=== PATIENT | female | born 1940 | race Caucasian/White ===

== ENCOUNTER → 2016-06-08 | Outpatient (REF) | payer MEDICARE ==
[2016-06-08 11:54] LABS: ANION GAP 9 MEQ/L (8-16); BLOOD UREA NITROGEN 13 MG/DL (7-18); CALCIUM LEVEL 9.7 MG/DL (8.8-10.2); CARBON DIOXIDE LEVEL 30 MEQ/L (21-32); CHLORIDE LEVEL 105 MEQ/L (98-107); CREATININE FOR GFR 0.54 MG/DL (0.55-1.02); GLOMERULAR FILTRATION RATE > 60.0 (>39); GLUCOSE, FASTING 80 MG/DL (83-110); POTASSIUM SERUM 4.3 MEQ/L (3.5-5.1); SODIUM LEVEL 144 MEQ/L (136-145)
== END ==
LOC: M LABDRAWC 11:10
PROVIDERS: ATTEND Ophthalmology
DX: I10 Essential (primary) hypertension (principal)

== ENCOUNTER → 2016-06-13 | Outpatient (REF) | payer MEDICARE ==
[2016-06-13 18:49] LABS: ALBUMIN 3.7 GM/DL (3.2-5.2); ALBUMIN/GLOBULIN RATIO 0.77 (1.00-1.93); ALKALINE PHOSPHATASE 187 U/L (45-117); ALT/SGPT 18 U/L (12-78); ANION GAP 11 MEQ/L (8-16); AST/SGOT 18 U/L (15-37); BILIRUBIN,TOTAL 0.4 MG/DL (0.2-1.0); BLOOD UREA NITROGEN 10 MG/DL (7-18); CALCIUM LEVEL 10.1 MG/DL (8.8-10.2); CARBON DIOXIDE LEVEL 26 MEQ/L (21-32); CHLORIDE LEVEL 105 MEQ/L (98-107); CHOLESTEROL LEVEL 182 MG/DL (<200); GLOMERULAR FILTRATION RATE > 60.0 (>39); GLUCOSE, FASTING 95 MG/DL (83-110); POTASSIUM SERUM 3.6 MEQ/L (3.5-5.1); SODIUM LEVEL 142 MEQ/L (136-145); TOTAL PROTEIN 8.5 GM/DL (6.4-8.2); TRIGLYCERIDES LEVEL 114 MG/DL (<150)
[2016-06-14 14:55] LABS: GAMMA GLUTAMYLTRANSPEPTIDASE 138 U/L (5-55)
[2016-06-14 15:32] LABS: LABILE ALKPHOS 152 U/L; STABLE ALKPHOS 35 U/L
== END ==
LOC: M SFHCCLAY 09:31
PROVIDERS: ATTEND Nurse Practitioner
DX: Z01.818 Encounter for other preprocedural examination (principal); H26.9 Unspecified cataract; I10 Essential (primary) hypertension; F32.9 Major depressive disorder, single episode, unspecified; F40.01 Agoraphobia with panic disorder; M35.3 Polymyalgia rheumatica; Z79.52 Long term (current) use of systemic steroids; Z79.899 Other long term (current) drug therapy

== ENCOUNTER → 2016-06-13 | Outpatient (CLI) | payer MEDICARE ==
--- NOTE | 2016-06-13 10:32 | REP ---
Chest two views HISTORY: Preop clearance Comparison: None The lungs are hyperinflated. The lungs are clear. The heart is normal in size. The pulmonary vasculature is normal in appearance. There is a comminuted fracture of the the proximal right humerus. IMPRESSION: Comminuted fracture of the proximal right humerus
== END ==
LOC: M CLY 09:54
PROVIDERS: ATTEND Nurse Practitioner
DX: Z01.818 Encounter for other preprocedural examination (principal); H26.9 Unspecified cataract; S42.291A Other displaced fracture of upper end of right humerus, initial encounter for closed fracture; I10 Essential (primary) hypertension; F32.9 Major depressive disorder, single episode, unspecified; F40.01 Agoraphobia with panic disorder; M35.3 Polymyalgia rheumatica; Z79.52 Long term (current) use of systemic steroids; Z79.899 Other long term (current) drug therapy; Y92.9 Unspecified place or not applicable; Y93.9 Activity, unspecified; Y99.9 Unspecified external cause status; X58.XXXA Exposure to other specified factors, initial encounter

== ENCOUNTER → 2016-06-14 | Outpatient (REF) | payer MEDICARE | LOC: M SFHCCLAY 12:59 | PROVIDERS: ATTEND Nurse Practitioner | DX: R74.8 Abnormal levels of other serum enzymes (principal) ==

== ENCOUNTER 2022-05-30 16:12 | Inpatient (IN) | payer MEDICARE ==
[~2022-05-30] VITALS: Ht 154.9 cm; Wt 66.3 kg
[2022-05-30] MEDS ORDERED: LORazepam 2 MG/ML 1ML VIAL IM STA (16:36)
[2022-05-30 17:21] LABS: BASO # 0.1 10^3/uL (0.0-0.2); EOS # 0.3 10^3/uL (0.0-0.5); EOS % 4.2 % (0.0-3.0); HEMATOCRIT 47.3 % (36.0-47.0); HEMOGLOBIN 15.4 g/dl (12.0-15.5); LYMPH # 1.8 10^3/uL (1.5-5.0); LYMPH % 26.4 % (24.0-44.0); MEAN CORPUSCULAR HEMOGLOBIN 31.8 pg (27.0-33.0); MEAN CORPUSCULAR HGB CONC 32.6 g/dl (32.0-36.5); MEAN CORPUSCULAR VOLUME 97.5 fl (80.0-96.0); MONO # 0.6 10^3/uL (0.0-0.8); MONO % 8.3 % (2.0-8.0); NEUTROPHILS # 4.1 10^3/uL (1.5-8.5); NEUTROPHILS % 59.8 % (36.0-66.0); PLATELET COUNT, AUTOMATED 285 10^3/uL (150-450); RED BLOOD COUNT 4.85 10^6/uL (4.00-5.40); WHITE BLOOD COUNT 6.9 10^3/uL (4.0-10.0)
[2022-05-30] MEDS ORDERED: LORazepam 1 MG TAB PO STA (17:40)
[2022-05-30] MEDS ORDERED: LOSARTAN 50MG TABLET PO ONE (17:50)
[2022-05-30] MEDS ORDERED: atenoloL 25 MG TAB PO ONE (17:50)
[2022-05-30 17:51] LABS: ALBUMIN 4.2 G/DL (3.2-5.2); ALKALINE PHOSPHATASE 102 U/L (46-116); ALT/SGPT 15 U/L (7.0-40); AST/SGOT 29 U/L (<34); BILIRUBIN,DIRECT 0.2 MG/DL (<0.4); BILIRUBIN,TOTAL 0.8 MG/DL (0.3-1.2); BLOOD UREA NITROGEN 18 MG/DL (9-23); CALCIUM LEVEL 9.4 MG/DL (8.3-10.6); CARBON DIOXIDE LEVEL 26 MMOL/L (20-31); CHLORIDE LEVEL 106 MMOL/L (98-107); CREATININE FOR GFR 0.67 MG/DL (0.55-1.30); GLOMERULAR FILTRATION RATE > 60.0 (>32); GLUCOSE, FASTING 105 MG/DL (74-106); POTASSIUM SERUM 4.2 MMOL/L (3.5-5.1); SODIUM LEVEL 141 MMOL/L (136-145); TOTAL PROTEIN 7.7 G/DL (5.7-8.2)
[2022-05-30] MEDS ORDERED: LABETALOL 100MG/20ML VIAL IV STA (17:55)
[2022-05-30 18:05] LABS: CK-MB VALUE MASS < 1.0 NG/ML (<3.6)
[2022-05-30 18:09] LABS: CPK CREATINE PHOSPHOKINASE 82 U/L (34-145); MB/CK RELATIVE INDEX 1.21 (< OR =4)
[2022-05-30 19:16] LABS: RSV AMPLIFICATION NEGATIVE (NEGATIVE)
[2022-05-30] MEDS ORDERED: HOME MED LIST COMPLETE! XX SCH ×2 (19:40→19:45)
[2022-05-30 20:17] VITALS: BP 128/61; TEMP 97.3; O2SAT 95
[2022-05-30] MEDS ORDERED: **hydrALAZINE** 50 MG TAB PO PRN (20:40)
[2022-05-30 21:19] LABS: VITAMIN B12 LEVEL 304 PG/ML (211-911)
[2022-05-30 21:21] LABS: FOLATE 21.25 NG/ML (>5.4)
[2022-05-31 06:00] VITALS: BP 162/94; TEMP 97.9; O2SAT 98
[2022-05-31] MEDS: ENOXAPARIN 40MG/0.4ML SYRINGE (J1650 PER 10MG) SC SCH (08:55)
[2022-05-31] MEDS: LOSARTAN 50MG TABLET PO SCH (08:56)
[2022-05-31] MEDS: amLODIPine 5 MG TAB PO SCH (08:56)
[2022-05-31 13:32] LABS: HEMATOCRIT 43.5 % (36.0-47.0); HEMOGLOBIN 14.2 g/dl (12.0-15.5); MEAN CORPUSCULAR HEMOGLOBIN 31.7 pg (27.0-33.0); MEAN CORPUSCULAR HGB CONC 32.6 g/dl (32.0-36.5); MEAN CORPUSCULAR VOLUME 97.1 fl (80.0-96.0); PLATELET COUNT, AUTOMATED 276 10^3/uL (150-450); RED BLOOD COUNT 4.48 10^6/uL (4.00-5.40); WHITE BLOOD COUNT 5.4 10^3/uL (4.0-10.0)
[2022-05-31 14:08] LABS: BLOOD UREA NITROGEN 17 MG/DL (9-23); CALCIUM LEVEL 9.6 MG/DL (8.3-10.6); CARBON DIOXIDE LEVEL 28 MMOL/L (20-31); CHLORIDE LEVEL 105 MMOL/L (98-107); CHOLESTEROL LEVEL 169 MG/DL (<200); CHOLESTEROL RISK RATIO 3.67 (<5); CREATININE FOR GFR 0.62 MG/DL (0.55-1.30); GLOMERULAR FILTRATION RATE > 60.0 (>32); GLUCOSE, FASTING 164 MG/DL (74-106); LDL CHOLESTEROL 102.4 MG/DL (<100); MAGNESIUM LEVEL 1.7 MG/DL (1.8-2.4); POTASSIUM SERUM 3.5 MMOL/L (3.5-5.1); SODIUM LEVEL 140 MMOL/L (136-145); TRIGLYCERIDES LEVEL 103 MG/DL (<150)
[2022-05-31 20:00] VITALS: BP 163/92; TEMP 97.9; O2SAT 94
[2022-05-31] MEDS: QUEtiapine FUMARATE 25 MG TAB PO SCH (20:23)
[2022-05-31] MEDS: ACETAMINOPHEN TAB 650MG DOSE (2X325MG) PO PRN (20:24)
[2022-05-31] MEDS ORDERED: QUEtiapine FUMARATE 25 MG TAB PO ONE (22:35)
[2022-06-01] VITALS (7 sets, daily range): BP systolic 107–122; BP diastolic 51–68; TEMP 97–97.5; O2SAT 90–95
[2022-06-01] MEDS ORDERED: NS 1,000 ML IV ONE (00:55)
[2022-06-01 01:21] LABS: BASO # 0.1 10^3/uL (0.0-0.2); BASO % 0.9 % (0.0-1.0); EOS # 0.1 10^3/uL (0.0-0.5); EOS % 2.4 % (0.0-3.0); HEMATOCRIT 42.4 % (36.0-47.0); HEMOGLOBIN 13.9 g/dl (12.0-15.5); LYMPH # 2.9 10^3/uL (1.5-5.0); LYMPH % 49.3 % (24.0-44.0); MEAN CORPUSCULAR HEMOGLOBIN 31.5 pg (27.0-33.0); MEAN CORPUSCULAR HGB CONC 32.8 g/dl (32.0-36.5); MEAN CORPUSCULAR VOLUME 96.1 fl (80.0-96.0); MONO # 0.5 10^3/uL (0.0-0.8); MONO % 7.9 % (2.0-8.0); NEUTROPHILS # 2.3 10^3/uL (1.5-8.5); NEUTROPHILS % 39.3 % (36.0-66.0); PLATELET COUNT, AUTOMATED 269 10^3/uL (150-450); RED BLOOD COUNT 4.41 10^6/uL (4.00-5.40); WHITE BLOOD COUNT 5.8 10^3/uL (4.0-10.0)
[2022-06-01 01:52] LABS: ALBUMIN 3.7 G/DL (3.2-5.2); ALKALINE PHOSPHATASE 87 U/L (46-116); ALT/SGPT 15 U/L (7.0-40); AST/SGOT 20 U/L (<34); BILIRUBIN,TOTAL 0.6 MG/DL (0.3-1.2); BLOOD UREA NITROGEN 23 MG/DL (9-23); CALCIUM LEVEL 9.2 MG/DL (8.3-10.6); CARBON DIOXIDE LEVEL 28 MMOL/L (20-31); CHLORIDE LEVEL 105 MMOL/L (98-107); CREATININE FOR GFR 0.93 MG/DL (0.55-1.30); GLOMERULAR FILTRATION RATE > 60.0 (>32); GLUCOSE, FASTING 129 MG/DL (74-106); POTASSIUM SERUM 3.5 MMOL/L (3.5-5.1); SODIUM LEVEL 140 MMOL/L (136-145); THYROID STIMULATING HORMONE 11.531 uIU/ML (0.55-4.78); TOTAL PROTEIN 6.7 G/DL (5.7-8.2)
[2022-06-01] MEDS: LOSARTAN 50MG TABLET PO SCH (08:16)
[2022-06-01] MEDS: amLODIPine 5 MG TAB PO SCH (08:16)
[2022-06-01] MEDS: ENOXAPARIN 40MG/0.4ML SYRINGE (J1650 PER 10MG) SC SCH (08:20)
[2022-06-01 08:49] LABS: THYROXINE (T4) 7.7 UG/DL (4.5-10.9)
[2022-06-01 08:50] LABS: FREE THYROXINE INDEX 2.7 % (1.3-4.8); THYROID STIMULATING HORMONE 2.873 uIU/ML (0.55-4.78)
[2022-06-01] MEDS: QUEtiapine FUMARATE 25 MG TAB PO SCH (20:08)
[2022-06-01] MEDS: QUEtiapine FUMARATE 12.5 MG HALF-TAB PO PRN (23:14)
[2022-06-02] MEDS ORDERED: diphenhydrAMINE 50MG/ML VIAL IM PRN (00:05)
[2022-06-02] MEDS ORDERED: OLANZapine INTRAMUSCULAR 10MG VIAL IM PRN ×2 (00:05→13:25)
[2022-06-02] MEDS: OLANZapine INTRAMUSCULAR 10MG VIAL IM PRN ×2 (01:18→03:12)
[2022-06-02] MEDS: diphenhydrAMINE 50MG/ML VIAL IM PRN ×2 (01:46→05:43)
[2022-06-02] MEDS: ACETAMINOPHEN TAB 650MG DOSE (2X325MG) PO PRN (03:58)
[2022-06-02 06:00] VITALS: BP 139/78; TEMP 97.9; O2SAT 93
[2022-06-02] MEDS: ENOXAPARIN 40MG/0.4ML SYRINGE (J1650 PER 10MG) SC SCH (07:55)
[2022-06-02] MEDS: LOSARTAN 50MG TABLET PO SCH (07:55)
[2022-06-02] MEDS: amLODIPine 5 MG TAB PO SCH (07:55)
[2022-06-02] MEDS ORDERED: PILL CUTTER 1 EACH XX PRN (10:50)
[2022-06-02] MEDS: QUEtiapine FUMARATE 12.5 MG HALF-TAB PO PRN (13:31)
[2022-06-02] MEDS ORDERED: OLANZapine 2.5MG TABLET PO ONE (17:15)
[2022-06-02] MEDS: RAMELTEON 8 MG TAB (ROZEREM) PO SCH (20:21)
[2022-06-02] MEDS ORDERED: QUEtiapine FUMARATE 25 MG TAB PO SCH (21:00)
[2022-06-03 05:15] VITALS: BP 156/79; TEMP 97.3; O2SAT 95
[2022-06-03] MEDS: QUEtiapine FUMARATE 12.5 MG HALF-TAB PO PRN (06:37)
[2022-06-03] MEDS: amLODIPine 5 MG TAB PO SCH (07:32)
[2022-06-03] MEDS: ENOXAPARIN 40MG/0.4ML SYRINGE (J1650 PER 10MG) SC SCH (07:33)
[2022-06-03] MEDS: LOSARTAN 50MG TABLET PO SCH (07:33)
[2022-06-03] MEDS ORDERED: OLANZapine 5 MG TAB PO ONE (16:40)
[2022-06-03] MEDS ORDERED: OLANZapine INTRAMUSCULAR 10MG VIAL IM ONE (17:00)
[2022-06-03] MEDS ORDERED: NS 500 ML IV ONE ×2 (18:20→20:00)
[2022-06-03 18:37] VITALS: BP 74/50; O2SAT 91
[2022-06-03 18:48] LABS: BASO # 0.1 10^3/uL (0.0-0.2); EOS # 0.2 10^3/uL (0.0-0.5); EOS % 2.9 % (0.0-3.0); HEMATOCRIT 41.7 % (36.0-47.0); HEMOGLOBIN 13.7 g/dl (12.0-15.5); LYMPH # 2.5 10^3/uL (1.5-5.0); LYMPH % 40.9 % (24.0-44.0); MEAN CORPUSCULAR HEMOGLOBIN 31.6 pg (27.0-33.0); MEAN CORPUSCULAR HGB CONC 32.9 g/dl (32.0-36.5); MEAN CORPUSCULAR VOLUME 96.1 fl (80.0-96.0); MONO # 0.5 10^3/uL (0.0-0.8); MONO % 8.7 % (2.0-8.0); NEUTROPHILS # 2.9 10^3/uL (1.5-8.5); NEUTROPHILS % 46.3 % (36.0-66.0); PLATELET COUNT, AUTOMATED 287 10^3/uL (150-450); RED BLOOD COUNT 4.34 10^6/uL (4.00-5.40); WHITE BLOOD COUNT 6.2 10^3/uL (4.0-10.0)
[2022-06-03 19:11] LABS: CALCIUM LEVEL 8.7 MG/DL (8.3-10.6); CREATININE FOR GFR 1.12 MG/DL (0.55-1.30); GLOMERULAR FILTRATION RATE 49.6 (>32); POTASSIUM SERUM 3.3 MMOL/L (3.5-5.1)
[2022-06-03] MEDS ORDERED: POTASSIUM CHLORIDE 10MEQ SR TABLET PO ONE (20:00)
[2022-06-03] MEDS: RAMELTEON 8 MG TAB (ROZEREM) PO SCH (20:57)
[2022-06-04 01:00] VITALS: BP 130/65
[2022-06-04 05:45] VITALS: BP 153/74; TEMP 97; O2SAT 97
[2022-06-04] MEDS: amLODIPine 5 MG TAB PO SCH (08:47)
[2022-06-04] MEDS: LOSARTAN 50MG TABLET PO SCH (08:48)
[2022-06-04] MEDS: ACETAMINOPHEN TAB 650MG DOSE (2X325MG) PO PRN ×2 (08:49→20:02)
[2022-06-04] MEDS ORDERED: ARIPiprazole 2 MG TAB PO SCH (09:00)
[2022-06-04] MEDS: ENOXAPARIN 40MG/0.4ML SYRINGE (J1650 PER 10MG) SC SCH (09:29)
[2022-06-04] MEDS ORDERED: QUEtiapine FUMARATE 25 MG TAB PO SCH (15:30)
[2022-06-04] MEDS: RAMELTEON 8 MG TAB (ROZEREM) PO SCH (19:54)
[2022-06-04] MEDS: QUEtiapine FUMARATE 25 MG TAB PO PRN (19:58)
[2022-06-05 05:36] VITALS: BP 116/50; TEMP 97.2; O2SAT 98
[2022-06-05 06:16] LABS: CALCIUM LEVEL 8.4 MG/DL (8.3-10.6); CREATININE FOR GFR 1.06 MG/DL (0.55-1.30); GLOMERULAR FILTRATION RATE 52.8 (>32); POTASSIUM SERUM 3.4 MMOL/L (3.5-5.1)
[2022-06-05] MEDS: amLODIPine 5 MG TAB PO SCH (08:06)
[2022-06-05] MEDS: LOSARTAN 50MG TABLET PO SCH (08:06)
[2022-06-05] MEDS: ENOXAPARIN 40MG/0.4ML SYRINGE (J1650 PER 10MG) SC SCH (08:07)
[2022-06-05] MEDS: ARIPiprazole 2 MG TAB PO SCH (18:04)
[2022-06-05] MEDS: QUEtiapine FUMARATE 25 MG TAB PO PRN (20:22)
[2022-06-05] MEDS: RAMELTEON 8 MG TAB (ROZEREM) PO SCH (20:22)
[2022-06-05] MEDS: POTASSIUM CHLORIDE 10MEQ SR TABLET PO SCH ×2 (20:22→23:18)
[2022-06-05] MEDS: DOCUSATE SODIUM 100MG CAPSULE PO PRN (23:18)
[2022-06-06 06:00] VITALS: BP 126/70; TEMP 97.5; O2SAT 98
[2022-06-06 07:01] LABS: BLOOD UREA NITROGEN 36 MG/DL (9-23); CALCIUM LEVEL 9.4 MG/DL (8.3-10.6); CARBON DIOXIDE LEVEL 26 MMOL/L (20-31); CHLORIDE LEVEL 108 MMOL/L (98-107); CREATININE FOR GFR 0.91 MG/DL (0.55-1.30); GLOMERULAR FILTRATION RATE > 60.0 (>32); GLUCOSE, FASTING 98 MG/DL (74-106); POTASSIUM SERUM 4.5 MMOL/L (3.5-5.1); SODIUM LEVEL 141 MMOL/L (136-145)
[2022-06-06] MEDS: amLODIPine 5 MG TAB PO SCH (08:27)
[2022-06-06] MEDS: LOSARTAN 50MG TABLET PO SCH (08:27)
[2022-06-06] MEDS: ENOXAPARIN 40MG/0.4ML SYRINGE (J1650 PER 10MG) SC SCH (08:27)
[2022-06-06] MEDS: ARIPiprazole 2 MG TAB PO SCH (17:22)
[2022-06-06] MEDS: DOCUSATE SODIUM 100MG CAPSULE PO PRN (19:54)
[2022-06-06] MEDS: QUEtiapine FUMARATE 25 MG TAB PO PRN (19:54)
[2022-06-06] MEDS: RAMELTEON 8 MG TAB (ROZEREM) PO SCH (19:55)
[2022-06-07 06:00] VITALS: BP 124/71; TEMP 97.5; O2SAT 97
[2022-06-07 08:30] VITALS: BP 116/65
[2022-06-07] MEDS: LOSARTAN 50MG TABLET PO SCH (08:30)
[2022-06-07] MEDS: amLODIPine 5 MG TAB PO SCH (08:31)
[2022-06-07] MEDS: ENOXAPARIN 40MG/0.4ML SYRINGE (J1650 PER 10MG) SC SCH (08:31)
[2022-06-07] MEDS: ARIPiprazole 2 MG TAB PO SCH (17:13)
[2022-06-07] MEDS: RAMELTEON 8 MG TAB (ROZEREM) PO SCH (19:28)
[2022-06-07] MEDS: QUEtiapine FUMARATE 25 MG TAB PO PRN (19:28)
[2022-06-08 06:38] VITALS: BP 111/62; TEMP 97.3; O2SAT 95
[2022-06-08] MEDS: amLODIPine 5 MG TAB PO SCH (08:15)
[2022-06-08] MEDS: LOSARTAN 50MG TABLET PO SCH (08:15)
[2022-06-08] MEDS: ENOXAPARIN 40MG/0.4ML SYRINGE (J1650 PER 10MG) SC SCH (08:16)
[2022-06-08] MEDS: QUEtiapine FUMARATE 25 MG TAB PO PRN (16:12)
[2022-06-08] MEDS: ARIPiprazole 2 MG TAB PO SCH (17:33)
[2022-06-08] MEDS: RAMELTEON 8 MG TAB (ROZEREM) PO SCH (19:57)
[2022-06-09 05:38] VITALS: BP 146/72; TEMP 97.6
[2022-06-09] MEDS: ENOXAPARIN 40MG/0.4ML SYRINGE (J1650 PER 10MG) SC SCH (08:20)
[2022-06-09] MEDS: LOSARTAN 50MG TABLET PO SCH (08:20)
[2022-06-09] MEDS: amLODIPine 5 MG TAB PO SCH (08:20)
[2022-06-09] MEDS: ARIPiprazole 2 MG TAB PO SCH (18:05)
[2022-06-09] MEDS: QUEtiapine FUMARATE 25 MG TAB PO PRN (18:05)
[2022-06-09] MEDS: RAMELTEON 8 MG TAB (ROZEREM) PO SCH (20:13)
[2022-06-10 05:40] VITALS: BP 108/66; TEMP 97.3; O2SAT 100
[2022-06-10] MEDS: LOSARTAN 50MG TABLET PO SCH (08:01)
[2022-06-10] MEDS: amLODIPine 5 MG TAB PO SCH (08:01)
[2022-06-10 11:27] VITALS: BP 109/68
[2022-06-10] MEDS: ENOXAPARIN 40MG/0.4ML SYRINGE (J1650 PER 10MG) SC SCH (11:29)
[2022-06-10] MEDS: QUEtiapine FUMARATE 25 MG TAB PO PRN (15:23)
[2022-06-10 17:00] VITALS: BP 72/51; TEMP 97.2; O2SAT 95
[2022-06-10] MEDS: ARIPiprazole 2 MG TAB PO SCH (18:00)
[2022-06-10] MEDS ORDERED: NS 1,000 ML IV ONE (18:00)
[2022-06-10 18:49] VITALS: BP 108/59
[2022-06-10] MEDS: RAMELTEON 8 MG TAB (ROZEREM) PO SCH (21:13)
[2022-06-10] MEDS: ACETAMINOPHEN TAB 650MG DOSE (2X325MG) PO PRN (21:13)
[2022-06-10 22:00] VITALS: BP 126/68
[2022-06-11 04:00] VITALS: BP 125/66; TEMP 97.1; O2SAT 96
[2022-06-11] MEDS: amLODIPine 5 MG TAB PO SCH (08:24)
[2022-06-11 08:25] VITALS: BP 135/68
[2022-06-11] MEDS: LOSARTAN 50MG TABLET PO SCH (08:25)
[2022-06-11] MEDS: ENOXAPARIN 40MG/0.4ML SYRINGE (J1650 PER 10MG) SC SCH (08:42)
[2022-06-11 11:55] VITALS: BP 102/61
[2022-06-11 15:54] VITALS: BP 125/73
[2022-06-11] MEDS: ARIPiprazole 2 MG TAB PO SCH (16:56)
[2022-06-11] MEDS: RAMELTEON 8 MG TAB (ROZEREM) PO SCH (22:26)
[2022-06-12 05:10] VITALS: BP 118/74; TEMP 97.3; O2SAT 96
[2022-06-12] MEDS: LOSARTAN 50MG TABLET PO SCH (09:00)
[2022-06-12] MEDS: ENOXAPARIN 40MG/0.4ML SYRINGE (J1650 PER 10MG) SC SCH (09:00)
[2022-06-12] MEDS: amLODIPine 5 MG TAB PO SCH (09:00)
[2022-06-12 09:27] VITALS: BP 118/63
[2022-06-12] MEDS: QUEtiapine FUMARATE 12.5 MG HALF-TAB PO PRN (09:30)
[2022-06-12] MEDS: ARIPiprazole 2 MG TAB PO SCH (17:28)
[2022-06-12 17:54] VITALS: BP 120/75
[2022-06-12] MEDS: RAMELTEON 8 MG TAB (ROZEREM) PO SCH ×2 (20:32→20:34)
[2022-06-13 05:05] VITALS: BP 131/74; TEMP 98.1; O2SAT 97
[2022-06-13] MEDS: LOSARTAN 50MG TABLET PO SCH (08:13)
[2022-06-13] MEDS: ENOXAPARIN 40MG/0.4ML SYRINGE (J1650 PER 10MG) SC SCH ×2 (08:14→08:19)
[2022-06-13] MEDS: amLODIPine 5 MG TAB PO SCH (08:14)
[2022-06-13] MEDS: ARIPiprazole 2 MG TAB PO SCH (18:08)
[2022-06-13] MEDS: RAMELTEON 8 MG TAB (ROZEREM) PO SCH (20:28)
[2022-06-13] MEDS: ACETAMINOPHEN TAB 650MG DOSE (2X325MG) PO PRN (20:28)
[2022-06-14 06:00] VITALS: BP 112/59; TEMP 97.7; O2SAT 97
[2022-06-14] MEDS: LOSARTAN 50MG TABLET PO SCH (09:00)
[2022-06-14] MEDS: ENOXAPARIN 40MG/0.4ML SYRINGE (J1650 PER 10MG) SC SCH (09:00)
[2022-06-14] MEDS: amLODIPine 5 MG TAB PO SCH (09:00)
[2022-06-14] MEDS: ARIPiprazole 2 MG TAB PO SCH (16:58)
[2022-06-14] MEDS: RAMELTEON 8 MG TAB (ROZEREM) PO SCH (20:10)
[2022-06-15 06:05] VITALS: BP 122/80; TEMP 97.5; O2SAT 98
[2022-06-15 07:46] VITALS: BP 126/74
[2022-06-15] MEDS: amLODIPine 5 MG TAB PO SCH (08:19)
[2022-06-15] MEDS: ENOXAPARIN 40MG/0.4ML SYRINGE (J1650 PER 10MG) SC SCH (08:20)
[2022-06-15] MEDS: LOSARTAN 50MG TABLET PO SCH (08:20)
[2022-06-15] MEDS: ARIPiprazole 2 MG TAB PO SCH (18:05)
[2022-06-15] MEDS: RAMELTEON 8 MG TAB (ROZEREM) PO SCH (20:39)
[2022-06-16 06:00] VITALS: BP 130/70; TEMP 97.5; O2SAT 98
[2022-06-16] MEDS: ENOXAPARIN 40MG/0.4ML SYRINGE (J1650 PER 10MG) SC SCH (07:58)
[2022-06-16] MEDS: amLODIPine 5 MG TAB PO SCH (08:45)
[2022-06-16] MEDS: LOSARTAN 50MG TABLET PO SCH (08:45)
[2022-06-16] MEDS ORDERED: POLYVINYL ALCOHOL OPHTH SOLN 15ML (LIQUITEARS) OU PRN (16:25)
[2022-06-16] MEDS: ARIPiprazole 2 MG TAB PO SCH (17:11)
[2022-06-16] MEDS: RAMELTEON 8 MG TAB (ROZEREM) PO SCH (21:00)
[2022-06-17 06:00] VITALS: BP 127/69; TEMP 97.7; O2SAT 100
[2022-06-17] MEDS: amLODIPine 5 MG TAB PO SCH (08:09)
[2022-06-17] MEDS: LOSARTAN 50MG TABLET PO SCH (08:09)
[2022-06-17] MEDS: ENOXAPARIN 40MG/0.4ML SYRINGE (J1650 PER 10MG) SC SCH (08:12)
[2022-06-17] MEDS: ACETAMINOPHEN TAB 650MG DOSE (2X325MG) PO PRN (17:25)
[2022-06-17] MEDS: ARIPiprazole 2 MG TAB PO SCH (17:25)
[2022-06-17] MEDS: RAMELTEON 8 MG TAB (ROZEREM) PO SCH (23:50)
[2022-06-18 06:00] VITALS: BP 112/65; TEMP 97.5; O2SAT 100
[2022-06-18] MEDS: amLODIPine 5 MG TAB PO SCH (08:00)
[2022-06-18] MEDS: LOSARTAN 50MG TABLET PO SCH (08:00)
[2022-06-18] MEDS: ENOXAPARIN 40MG/0.4ML SYRINGE (J1650 PER 10MG) SC SCH (08:00)
[2022-06-18] MEDS: ARIPiprazole 2 MG TAB PO SCH (17:20)
[2022-06-18] MEDS: RAMELTEON 8 MG TAB (ROZEREM) PO SCH (19:52)
[2022-06-18] MEDS: ACETAMINOPHEN TAB 650MG DOSE (2X325MG) PO PRN (23:59)
[2022-06-19 05:28] VITALS: BP 132/68; TEMP 97.3; O2SAT 96
[2022-06-19] MEDS: LOSARTAN 50MG TABLET PO SCH (07:49)
[2022-06-19] MEDS: amLODIPine 5 MG TAB PO SCH (07:49)
[2022-06-19] MEDS: ENOXAPARIN 40MG/0.4ML SYRINGE (J1650 PER 10MG) SC SCH ×2 (07:50→07:54)
[2022-06-19] MEDS: ARIPiprazole 2 MG TAB PO SCH (17:17)
[2022-06-19] MEDS: RAMELTEON 8 MG TAB (ROZEREM) PO SCH (20:08)
[2022-06-20 06:37] VITALS: BP 108/64; TEMP 97; O2SAT 97
[2022-06-20] MEDS: LOSARTAN 50MG TABLET PO SCH (07:45)
[2022-06-20] MEDS: ENOXAPARIN 40MG/0.4ML SYRINGE (J1650 PER 10MG) SC SCH (07:46)
[2022-06-20] MEDS: amLODIPine 5 MG TAB PO SCH (07:46)
[2022-06-20] MEDS: ARIPiprazole 2 MG TAB PO SCH (17:43)
[2022-06-20] MEDS: ACETAMINOPHEN TAB 650MG DOSE (2X325MG) PO PRN (18:49)
[2022-06-20] MEDS: RAMELTEON 8 MG TAB (ROZEREM) PO SCH (19:49)
[2022-06-21 05:23] VITALS: BP 111/61; TEMP 97.7; O2SAT 96
[2022-06-21 08:03] VITALS: BP 110/60
[2022-06-21] MEDS: LOSARTAN 50MG TABLET PO SCH (08:05)
[2022-06-21] MEDS: amLODIPine 5 MG TAB PO SCH (08:05)
[2022-06-21] MEDS: ENOXAPARIN 40MG/0.4ML SYRINGE (J1650 PER 10MG) SC SCH (08:06)
[2022-06-21] MEDS: ARIPiprazole 2 MG TAB PO SCH (17:28)
[2022-06-21] MEDS: RAMELTEON 8 MG TAB (ROZEREM) PO SCH (19:55)
[2022-06-22 06:00] VITALS: BP 121/78; TEMP 97.2; O2SAT 96
[2022-06-22] MEDS: LOSARTAN 50MG TABLET PO SCH (09:00)
[2022-06-22] MEDS: amLODIPine 5 MG TAB PO SCH (09:21)
[2022-06-22] MEDS: ENOXAPARIN 40MG/0.4ML SYRINGE (J1650 PER 10MG) SC SCH (09:21)
[2022-06-22] MEDS: ARIPiprazole 2 MG TAB PO SCH (17:42)
[2022-06-22] MEDS: RAMELTEON 8 MG TAB (ROZEREM) PO SCH (19:47)
[2022-06-23 06:00] VITALS: BP 140/81; TEMP 97.7; O2SAT 95
[2022-06-23] MEDS: amLODIPine 5 MG TAB PO SCH (08:00)
[2022-06-23] MEDS: ENOXAPARIN 40MG/0.4ML SYRINGE (J1650 PER 10MG) SC SCH (08:00)
[2022-06-23] MEDS: LOSARTAN 50MG TABLET PO SCH (08:01)
[2022-06-23] MEDS: ARIPiprazole 2 MG TAB PO SCH (18:11)
[2022-06-23] MEDS: RAMELTEON 8 MG TAB (ROZEREM) PO SCH (20:07)
[2022-06-24] MEDS: ACETAMINOPHEN TAB 650MG DOSE (2X325MG) PO PRN ×2 (03:27→16:36)
[2022-06-24 06:00] VITALS: BP 111/72; TEMP 97.3; O2SAT 97
[2022-06-24] MEDS: ENOXAPARIN 40MG/0.4ML SYRINGE (J1650 PER 10MG) SC SCH (08:13)
[2022-06-24] MEDS: amLODIPine 5 MG TAB PO SCH (08:14)
[2022-06-24] MEDS: LOSARTAN 50MG TABLET PO SCH (08:15)
[2022-06-24] MEDS: ARIPiprazole 2 MG TAB PO SCH (17:39)
[2022-06-24] MEDS: DOCUSATE SODIUM 100MG CAPSULE PO PRN (19:47)
[2022-06-24] MEDS: RAMELTEON 8 MG TAB (ROZEREM) PO SCH (19:47)
[2022-06-25 04:38] VITALS: BP 127/73; TEMP 97.5; O2SAT 96
[2022-06-25 08:30] VITALS: BP 107/60
[2022-06-25] MEDS: amLODIPine 5 MG TAB PO SCH (08:33)
[2022-06-25] MEDS: LOSARTAN 50MG TABLET PO SCH (08:33)
[2022-06-25] MEDS: ENOXAPARIN 40MG/0.4ML SYRINGE (J1650 PER 10MG) SC SCH (08:34)
[2022-06-25] MEDS: ACETAMINOPHEN TAB 650MG DOSE (2X325MG) PO PRN (15:52)
[2022-06-25] MEDS: ARIPiprazole 2 MG TAB PO SCH (17:48)
[2022-06-25] MEDS: RAMELTEON 8 MG TAB (ROZEREM) PO SCH (20:08)
[2022-06-25] MEDS: QUEtiapine FUMARATE 12.5 MG HALF-TAB PO PRN (20:09)
[2022-06-26 06:28] VITALS: BP 122/64; TEMP 97.9; O2SAT 98
[2022-06-26] MEDS: ENOXAPARIN 40MG/0.4ML SYRINGE (J1650 PER 10MG) SC SCH (07:46)
[2022-06-26] MEDS: LOSARTAN 50MG TABLET PO SCH (07:48)
[2022-06-26] MEDS: amLODIPine 5 MG TAB PO SCH (07:49)
[2022-06-26] MEDS: ARIPiprazole 2 MG TAB PO SCH (18:00)
[2022-06-26] MEDS: RAMELTEON 8 MG TAB (ROZEREM) PO SCH (20:07)
[2022-06-27] MEDS: ACETAMINOPHEN TAB 650MG DOSE (2X325MG) PO PRN (00:10)
[2022-06-27 05:06] VITALS: BP 114/77; TEMP 97.5; O2SAT 96
[2022-06-27] MEDS: amLODIPine 5 MG TAB PO SCH (08:22)
[2022-06-27] MEDS: LOSARTAN 50MG TABLET PO SCH (08:22)
[2022-06-27] MEDS: ENOXAPARIN 40MG/0.4ML SYRINGE (J1650 PER 10MG) SC SCH (09:00)
[2022-06-27] MEDS: ARIPiprazole 2 MG TAB PO SCH (18:32)
[2022-06-27] MEDS: RAMELTEON 8 MG TAB (ROZEREM) PO SCH (21:04)
[2022-06-27] MEDS: QUEtiapine FUMARATE 12.5 MG HALF-TAB PO PRN (21:04)
[2022-06-28 05:45] VITALS: BP 124/73; TEMP 97.9; O2SAT 96
[2022-06-28] MEDS: amLODIPine 5 MG TAB PO SCH (08:18)
[2022-06-28] MEDS: LOSARTAN 50MG TABLET PO SCH (08:20)
[2022-06-28] MEDS: ENOXAPARIN 40MG/0.4ML SYRINGE (J1650 PER 10MG) SC SCH (08:21)
[2022-06-28] MEDS: ARIPiprazole 2 MG TAB PO SCH (17:13)
[2022-06-28] MEDS: QUEtiapine FUMARATE 12.5 MG HALF-TAB PO PRN (21:33)
[2022-06-28] MEDS: RAMELTEON 8 MG TAB (ROZEREM) PO SCH (21:33)
[2022-06-29 05:00] VITALS: BP 126/76; TEMP 97.7; O2SAT 97
[2022-06-29] MEDS: LOSARTAN 50MG TABLET PO SCH (08:47)
[2022-06-29] MEDS: ENOXAPARIN 40MG/0.4ML SYRINGE (J1650 PER 10MG) SC SCH (08:47)
[2022-06-29] MEDS: amLODIPine 5 MG TAB PO SCH (08:48)
[2022-06-29] MEDS: ARIPiprazole 2 MG TAB PO SCH (17:43)
[2022-06-29] MEDS: RAMELTEON 8 MG TAB (ROZEREM) PO SCH (20:13)
[2022-06-30 05:10] VITALS: BP 144/75; TEMP 97.7; O2SAT 99
[2022-06-30] MEDS: amLODIPine 5 MG TAB PO SCH (08:09)
[2022-06-30] MEDS: ENOXAPARIN 40MG/0.4ML SYRINGE (J1650 PER 10MG) SC SCH (08:10)
[2022-06-30] MEDS: LOSARTAN 50MG TABLET PO SCH (08:10)
[2022-06-30] MEDS: ARIPiprazole 2 MG TAB PO SCH (17:27)
[2022-06-30] MEDS: QUEtiapine FUMARATE 12.5 MG HALF-TAB PO PRN (19:55)
[2022-06-30] MEDS: RAMELTEON 8 MG TAB (ROZEREM) PO SCH (19:58)
[2022-07-01 06:25] VITALS: BP 114/56; TEMP 97.9; O2SAT 98
[2022-07-01] MEDS: LOSARTAN 50MG TABLET PO SCH (08:21)
[2022-07-01] MEDS: ENOXAPARIN 40MG/0.4ML SYRINGE (J1650 PER 10MG) SC SCH (08:22)
[2022-07-01] MEDS: amLODIPine 5 MG TAB PO SCH (08:22)
[2022-07-01] MEDS: ARIPiprazole 2 MG TAB PO SCH (17:57)
[2022-07-01] MEDS: QUEtiapine FUMARATE 12.5 MG HALF-TAB PO PRN (21:16)
[2022-07-01] MEDS: RAMELTEON 8 MG TAB (ROZEREM) PO SCH (21:16)
[2022-07-02 06:00] VITALS: BP 131/83; TEMP 97.9; O2SAT 98
[2022-07-02] MEDS: amLODIPine 5 MG TAB PO SCH (09:26)
[2022-07-02] MEDS: ENOXAPARIN 40MG/0.4ML SYRINGE (J1650 PER 10MG) SC SCH (09:26)
[2022-07-02] MEDS: LOSARTAN 50MG TABLET PO SCH (09:26)
[2022-07-02] MEDS: ARIPiprazole 2 MG TAB PO SCH (17:28)
[2022-07-02] MEDS: RAMELTEON 8 MG TAB (ROZEREM) PO SCH (20:03)
[2022-07-02] MEDS: QUEtiapine FUMARATE 12.5 MG HALF-TAB PO PRN (20:04)
[2022-07-03] MEDS: LOSARTAN 50MG TABLET PO SCH (08:33)
[2022-07-03] MEDS: amLODIPine 5 MG TAB PO SCH (08:33)
[2022-07-03] MEDS: ENOXAPARIN 40MG/0.4ML SYRINGE (J1650 PER 10MG) SC SCH (08:35)
[2022-07-03] MEDS: QUEtiapine FUMARATE 12.5 MG HALF-TAB PO PRN (12:48)
[2022-07-03] MEDS: ARIPiprazole 2 MG TAB PO SCH (17:17)
[2022-07-03] MEDS: ACETAMINOPHEN TAB 650MG DOSE (2X325MG) PO PRN (18:39)
[2022-07-03] MEDS: RAMELTEON 8 MG TAB (ROZEREM) PO SCH (20:01)
[2022-07-04 06:00] VITALS: BP 127/76; TEMP 97.7; O2SAT 98
[2022-07-04] MEDS: ENOXAPARIN 40MG/0.4ML SYRINGE (J1650 PER 10MG) SC SCH (09:00)
[2022-07-04] MEDS: amLODIPine 5 MG TAB PO SCH (09:06)
[2022-07-04] MEDS: DOCUSATE SODIUM 100MG CAPSULE PO PRN (09:06)
[2022-07-04] MEDS: LOSARTAN 50MG TABLET PO SCH (09:06)
[2022-07-04] MEDS: ACETAMINOPHEN TAB 650MG DOSE (2X325MG) PO PRN ×2 (09:07→21:06)
[2022-07-04] MEDS: ARIPiprazole 2 MG TAB PO SCH (17:13)
[2022-07-04] MEDS: RAMELTEON 8 MG TAB (ROZEREM) PO SCH (20:01)
[2022-07-05 04:00] VITALS: BP 131/91; TEMP 97.7; O2SAT 96
[2022-07-05] MEDS: amLODIPine 5 MG TAB PO SCH (09:00)
[2022-07-05] MEDS: LOSARTAN 50MG TABLET PO SCH (09:00)
[2022-07-05] MEDS: ENOXAPARIN 40MG/0.4ML SYRINGE (J1650 PER 10MG) SC SCH (09:34)
[2022-07-05] MEDS: ACETAMINOPHEN TAB 650MG DOSE (2X325MG) PO PRN (13:15)
[2022-07-05] MEDS: ARIPiprazole 2 MG TAB PO SCH (17:45)
[2022-07-05] MEDS: QUEtiapine FUMARATE 12.5 MG HALF-TAB PO PRN (21:26)
[2022-07-05] MEDS: RAMELTEON 8 MG TAB (ROZEREM) PO SCH (21:26)
[2022-07-06 06:00] VITALS: BP 133/70; TEMP 97.5; O2SAT 97
[2022-07-06] MEDS: LOSARTAN 50MG TABLET PO SCH (08:21)
[2022-07-06] MEDS: amLODIPine 5 MG TAB PO SCH (08:21)
[2022-07-06] MEDS: ENOXAPARIN 40MG/0.4ML SYRINGE (J1650 PER 10MG) SC SCH (08:21)
[2022-07-06] MEDS: ARIPiprazole 2 MG TAB PO SCH (17:49)
[2022-07-06] MEDS: RAMELTEON 8 MG TAB (ROZEREM) PO SCH (21:04)
[2022-07-06] MEDS: QUEtiapine FUMARATE 12.5 MG HALF-TAB PO PRN (21:51)
[2022-07-07 06:00] VITALS: BP 127/73; TEMP 97.9; O2SAT 99
[2022-07-07 06:28] LABS: HEMATOCRIT 40.5 % (36.0-47.0); HEMOGLOBIN 13.2 g/dl (12.0-15.5); MEAN CORPUSCULAR HEMOGLOBIN 31.5 pg (27.0-33.0); MEAN CORPUSCULAR HGB CONC 32.6 g/dl (32.0-36.5); MEAN CORPUSCULAR VOLUME 96.7 fl (80.0-96.0); PLATELET COUNT, AUTOMATED 306 10^3/uL (150-450); RED BLOOD COUNT 4.19 10^6/uL (4.00-5.40); WHITE BLOOD COUNT 5.3 10^3/uL (4.0-10.0)
[2022-07-07 06:53] LABS: ALBUMIN 3.7 G/DL (3.2-5.2); ALKALINE PHOSPHATASE 150 U/L (46-116); ALT/SGPT 55 U/L (7.0-40); AST/SGOT 35 U/L (<34); BILIRUBIN,TOTAL 0.5 MG/DL (0.3-1.2); BLOOD UREA NITROGEN 22 MG/DL (9-23); CALCIUM LEVEL 9.4 MG/DL (8.3-10.6); CARBON DIOXIDE LEVEL 29 MMOL/L (20-31); CHLORIDE LEVEL 107 MMOL/L (98-107); CREATININE FOR GFR 0.69 MG/DL (0.55-1.30); GLOMERULAR FILTRATION RATE > 60.0 (>32); GLUCOSE, FASTING 81 MG/DL (74-106); POTASSIUM SERUM 3.7 MMOL/L (3.5-5.1); SODIUM LEVEL 143 MMOL/L (136-145); TOTAL PROTEIN 7.4 G/DL (5.7-8.2)
[2022-07-07] MEDS: LOSARTAN 50MG TABLET PO SCH (08:39)
[2022-07-07] MEDS: amLODIPine 5 MG TAB PO SCH (08:39)
[2022-07-07] MEDS: ENOXAPARIN 40MG/0.4ML SYRINGE (J1650 PER 10MG) SC SCH (08:43)
[2022-07-07] MEDS: ACETAMINOPHEN TAB 650MG DOSE (2X325MG) PO PRN (12:14)
[2022-07-07] MEDS: ARIPiprazole 2 MG TAB PO SCH (17:28)
[2022-07-07] MEDS: QUEtiapine FUMARATE 12.5 MG HALF-TAB PO PRN (20:05)
[2022-07-07] MEDS: RAMELTEON 8 MG TAB (ROZEREM) PO SCH (20:05)
[2022-07-08 06:00] VITALS: BP 135/74; TEMP 97.5; O2SAT 97
[2022-07-08] MEDS: ENOXAPARIN 40MG/0.4ML SYRINGE (J1650 PER 10MG) SC SCH (08:24)
[2022-07-08] MEDS: LOSARTAN 50MG TABLET PO SCH (08:25)
[2022-07-08] MEDS: amLODIPine 5 MG TAB PO SCH (08:25)
[2022-07-08] MEDS: ARIPiprazole 2 MG TAB PO SCH (17:06)
[2022-07-08] MEDS: RAMELTEON 8 MG TAB (ROZEREM) PO SCH (20:22)
[2022-07-09 05:24] VITALS: BP 161/95; TEMP 97.7; O2SAT 95
[2022-07-09] MEDS: LOSARTAN 50MG TABLET PO SCH (08:41)
[2022-07-09] MEDS: amLODIPine 5 MG TAB PO SCH (08:41)
[2022-07-09 08:42] VITALS: BP 104/60
[2022-07-09] MEDS: ENOXAPARIN 40MG/0.4ML SYRINGE (J1650 PER 10MG) SC SCH (08:42)
[2022-07-09] MEDS: ARIPiprazole 2 MG TAB PO SCH (17:51)
[2022-07-09] MEDS: RAMELTEON 8 MG TAB (ROZEREM) PO SCH (21:21)
[2022-07-10 05:26] VITALS: BP 109/53; TEMP 97.9; O2SAT 95
[2022-07-10 09:00] VITALS: BP 132/66
[2022-07-10] MEDS: ENOXAPARIN 40MG/0.4ML SYRINGE (J1650 PER 10MG) SC SCH (09:01)
[2022-07-10] MEDS: amLODIPine 5 MG TAB PO SCH (09:02)
[2022-07-10] MEDS: LOSARTAN 50MG TABLET PO SCH (09:02)
[2022-07-10] MEDS: ACETAMINOPHEN TAB 650MG DOSE (2X325MG) PO PRN (16:09)
[2022-07-10] MEDS: QUEtiapine FUMARATE 12.5 MG HALF-TAB PO PRN (16:09)
[2022-07-10] MEDS: ARIPiprazole 2 MG TAB PO SCH (17:52)
[2022-07-10] MEDS: RAMELTEON 8 MG TAB (ROZEREM) PO SCH (20:05)
[2022-07-11 06:00] VITALS: BP 95/53; TEMP 97.5; O2SAT 93
[2022-07-11] MEDS: DOCUSATE SODIUM 100MG CAPSULE PO PRN (06:29)
[2022-07-11] MEDS: LOSARTAN 50MG TABLET PO SCH (08:14)
[2022-07-11] MEDS: amLODIPine 5 MG TAB PO SCH (08:15)
[2022-07-11 08:17] VITALS: BP 109/63
[2022-07-11] MEDS: SENOKOT S TAB PO SCH ×2 (09:00→19:58)
[2022-07-11] MEDS: ENOXAPARIN 40MG/0.4ML SYRINGE (J1650 PER 10MG) SC SCH (09:00)
[2022-07-11] MEDS: ARIPiprazole 2 MG TAB PO SCH (17:50)
[2022-07-11] MEDS: RAMELTEON 8 MG TAB (ROZEREM) PO SCH (19:58)
[2022-07-11] MEDS: ACETAMINOPHEN TAB 650MG DOSE (2X325MG) PO PRN (19:59)
[2022-07-12 06:00] VITALS: BP 119/68; TEMP 97.7; O2SAT 97
[2022-07-12] MEDS: LOSARTAN 50MG TABLET PO SCH (08:52)
[2022-07-12] MEDS: amLODIPine 5 MG TAB PO SCH (08:54)
[2022-07-12] MEDS: SENOKOT S TAB PO SCH ×4 (08:57→21:21)
[2022-07-12] MEDS: ENOXAPARIN 40MG/0.4ML SYRINGE (J1650 PER 10MG) SC SCH ×3 (08:58→09:03)
[2022-07-12] MEDS: ARIPiprazole 2 MG TAB PO SCH (18:38)
[2022-07-12] MEDS: RAMELTEON 8 MG TAB (ROZEREM) PO SCH (21:21)
[2022-07-13 06:00] VITALS: BP 122/61; TEMP 98.2; O2SAT 97
[2022-07-13] MEDS: SENOKOT S TAB PO SCH ×3 (09:00→19:57)
[2022-07-13] MEDS: ACETAMINOPHEN TAB 650MG DOSE (2X325MG) PO PRN ×2 (09:28→19:57)
[2022-07-13] MEDS: LOSARTAN 50MG TABLET PO SCH (09:28)
[2022-07-13] MEDS: amLODIPine 5 MG TAB PO SCH (09:28)
[2022-07-13] MEDS: ENOXAPARIN 40MG/0.4ML SYRINGE (J1650 PER 10MG) SC SCH (09:29)
[2022-07-13] MEDS: ARIPiprazole 2 MG TAB PO SCH (17:22)
[2022-07-13] MEDS: RAMELTEON 8 MG TAB (ROZEREM) PO SCH (19:57)
[2022-07-14 06:00] VITALS: BP 121/65; TEMP 97.7
[2022-07-14] MEDS: LOSARTAN 50MG TABLET PO SCH (08:07)
[2022-07-14] MEDS: amLODIPine 5 MG TAB PO SCH (08:08)
[2022-07-14] MEDS: SENOKOT S TAB PO SCH ×2 (08:08→21:51)
[2022-07-14] MEDS: ENOXAPARIN 40MG/0.4ML SYRINGE (J1650 PER 10MG) SC SCH (08:09)
[2022-07-14] MEDS: ARIPiprazole 2 MG TAB PO SCH (17:25)
[2022-07-14] MEDS: RAMELTEON 8 MG TAB (ROZEREM) PO SCH (21:50)
[2022-07-15 06:23] VITALS: BP 148/75; TEMP 97.7
[2022-07-15] MEDS: ENOXAPARIN 40MG/0.4ML SYRINGE (J1650 PER 10MG) SC SCH (09:00)
[2022-07-15] MEDS: amLODIPine 5 MG TAB PO SCH (09:46)
[2022-07-15] MEDS: LOSARTAN 50MG TABLET PO SCH (09:46)
[2022-07-15] MEDS: SENOKOT S TAB PO SCH ×2 (09:46→20:50)
[2022-07-15 15:00] VITALS: BP 88/56; TEMP 98.1; O2SAT 97
[2022-07-15] MEDS: ARIPiprazole 2 MG TAB PO SCH ×2 (17:38→17:40)
[2022-07-15] MEDS: QUEtiapine FUMARATE 12.5 MG HALF-TAB PO PRN (20:50)
[2022-07-15] MEDS: RAMELTEON 8 MG TAB (ROZEREM) PO SCH (20:50)
[2022-07-16 06:00] VITALS: BP 137/62; TEMP 97.5; O2SAT 98
[2022-07-16] MEDS: SENOKOT S TAB PO SCH ×2 (08:45→20:20)
[2022-07-16] MEDS: LOSARTAN 50MG TABLET PO SCH (08:45)
[2022-07-16] MEDS: ENOXAPARIN 40MG/0.4ML SYRINGE (J1650 PER 10MG) SC SCH (08:45)
[2022-07-16] MEDS: amLODIPine 5 MG TAB PO SCH (08:45)
[2022-07-16] MEDS: ARIPiprazole 2 MG TAB PO SCH ×3 (17:49→18:00)
[2022-07-16] MEDS: RAMELTEON 8 MG TAB (ROZEREM) PO SCH (20:20)
[2022-07-17 06:00] VITALS: BP 119/71; TEMP 98.1; O2SAT 96
[2022-07-17] MEDS: ENOXAPARIN 40MG/0.4ML SYRINGE (J1650 PER 10MG) SC SCH (09:00)
[2022-07-17] MEDS: LOSARTAN 50MG TABLET PO SCH (09:00)
[2022-07-17] MEDS: amLODIPine 5 MG TAB PO SCH (09:00)
[2022-07-17] MEDS: SENOKOT S TAB PO SCH ×2 (09:07→21:41)
[2022-07-17] MEDS: ARIPiprazole 2 MG TAB PO SCH (18:05)
[2022-07-17] MEDS: ACETAMINOPHEN TAB 650MG DOSE (2X325MG) PO PRN (18:07)
[2022-07-17] MEDS: RAMELTEON 8 MG TAB (ROZEREM) PO SCH (21:41)
[2022-07-18] MEDS: LOSARTAN 50MG TABLET PO SCH (09:00)
[2022-07-18] MEDS: amLODIPine 5 MG TAB PO SCH (09:00)
[2022-07-18] MEDS: SENOKOT S TAB PO SCH ×2 (09:27→21:00)
[2022-07-18] MEDS: ENOXAPARIN 40MG/0.4ML SYRINGE (J1650 PER 10MG) SC SCH (09:27)
[2022-07-18] MEDS: ARIPiprazole 2 MG TAB PO SCH (17:27)
[2022-07-18] MEDS: RAMELTEON 8 MG TAB (ROZEREM) PO SCH (21:00)
[2022-07-19 05:41] VITALS: BP 149/77; TEMP 97.9; O2SAT 97
[2022-07-19] MEDS: ENOXAPARIN 40MG/0.4ML SYRINGE (J1650 PER 10MG) SC SCH (08:36)
[2022-07-19] MEDS: SENOKOT S TAB PO SCH ×2 (08:37→20:31)
[2022-07-19] MEDS: LOSARTAN 50MG TABLET PO SCH ×2 (08:37→08:42)
[2022-07-19] MEDS: amLODIPine 5 MG TAB PO SCH (08:42)
[2022-07-19] MEDS: ACETAMINOPHEN TAB 650MG DOSE (2X325MG) PO PRN (10:17)
[2022-07-19] MEDS: ARIPiprazole 2 MG TAB PO SCH (18:00)
[2022-07-19] MEDS: RAMELTEON 8 MG TAB (ROZEREM) PO SCH (20:26)
[2022-07-20] MEDS: SENOKOT S TAB PO SCH ×2 (08:07→20:55)
[2022-07-20] MEDS: ENOXAPARIN 40MG/0.4ML SYRINGE (J1650 PER 10MG) SC SCH (08:07)
[2022-07-20] MEDS: amLODIPine 5 MG TAB PO SCH ×2 (08:16→08:18)
[2022-07-20] MEDS: LOSARTAN 50MG TABLET PO SCH ×2 (08:16→08:18)
[2022-07-20] MEDS: ARIPiprazole 2 MG TAB PO SCH (20:53)
[2022-07-20] MEDS: RAMELTEON 8 MG TAB (ROZEREM) PO SCH (20:53)
[2022-07-21 05:38] VITALS: BP 129/75; TEMP 98.1; O2SAT 97
[2022-07-21] MEDS: ENOXAPARIN 40MG/0.4ML SYRINGE (J1650 PER 10MG) SC SCH (09:09)
[2022-07-21] MEDS: SENOKOT S TAB PO SCH ×2 (09:09→21:00)
[2022-07-21] MEDS: LOSARTAN 50MG TABLET PO SCH (09:10)
[2022-07-21] MEDS: amLODIPine 5 MG TAB PO SCH (09:10)
[2022-07-21] MEDS: ARIPiprazole 2 MG TAB PO SCH (17:32)
[2022-07-21] MEDS: RAMELTEON 8 MG TAB (ROZEREM) PO SCH (21:00)
[2022-07-22 06:00] VITALS: BP 115/74; TEMP 97.9; O2SAT 94
[2022-07-22] MEDS: amLODIPine 5 MG TAB PO SCH (09:00)
[2022-07-22] MEDS: LOSARTAN 50MG TABLET PO SCH (09:00)
[2022-07-22] MEDS: SENOKOT S TAB PO SCH ×2 (10:11→19:58)
[2022-07-22] MEDS: ENOXAPARIN 40MG/0.4ML SYRINGE (J1650 PER 10MG) SC SCH (10:12)
[2022-07-22] MEDS: ARIPiprazole 2 MG TAB PO SCH (18:04)
[2022-07-22] MEDS: RAMELTEON 8 MG TAB (ROZEREM) PO SCH (19:58)
[2022-07-23 06:00] VITALS: BP 131/65; TEMP 97.7; O2SAT 94
[2022-07-23] MEDS: LOSARTAN 50MG TABLET PO SCH (09:14)
[2022-07-23] MEDS: SENOKOT S TAB PO SCH ×2 (09:14→20:01)
[2022-07-23] MEDS: amLODIPine 5 MG TAB PO SCH (09:14)
[2022-07-23] MEDS: ENOXAPARIN 40MG/0.4ML SYRINGE (J1650 PER 10MG) SC SCH (09:14)
[2022-07-23] MEDS: ARIPiprazole 2 MG TAB PO SCH (17:33)
[2022-07-23] MEDS: QUEtiapine FUMARATE 12.5 MG HALF-TAB PO PRN (17:33)
[2022-07-23 19:45] VITALS: BP 142/81; TEMP 98.6; O2SAT 92
[2022-07-23] MEDS: RAMELTEON 8 MG TAB (ROZEREM) PO SCH (20:01)
[2022-07-24 06:00] VITALS: BP 105/62; TEMP 97.3; O2SAT 95
[2022-07-24] MEDS: LOSARTAN 50MG TABLET PO SCH (09:02)
[2022-07-24] MEDS: SENOKOT S TAB PO SCH ×2 (09:02→20:42)
[2022-07-24] MEDS: amLODIPine 5 MG TAB PO SCH (09:02)
[2022-07-24] MEDS: ENOXAPARIN 40MG/0.4ML SYRINGE (J1650 PER 10MG) SC SCH (09:03)
[2022-07-24] MEDS: ARIPiprazole 2 MG TAB PO SCH (18:00)
[2022-07-24] MEDS: QUEtiapine FUMARATE 12.5 MG HALF-TAB PO PRN (18:00)
[2022-07-24] MEDS: RAMELTEON 8 MG TAB (ROZEREM) PO SCH (20:42)
[2022-07-25 06:00] VITALS: BP 121/72; TEMP 97.7; O2SAT 86
[2022-07-25] MEDS: SENOKOT S TAB PO SCH ×2 (08:20→21:00)
[2022-07-25] MEDS: ENOXAPARIN 40MG/0.4ML SYRINGE (J1650 PER 10MG) SC SCH (08:20)
[2022-07-25] MEDS: LOSARTAN 50MG TABLET PO SCH (09:00)
[2022-07-25] MEDS: ARIPiprazole 2 MG TAB PO SCH (18:30)
[2022-07-25] MEDS: RAMELTEON 8 MG TAB (ROZEREM) PO SCH (21:00)
[2022-07-26] MEDS: LOSARTAN 50MG TABLET PO SCH (08:36)
[2022-07-26] MEDS: SENOKOT S TAB PO SCH ×2 (08:37→20:40)
[2022-07-26] MEDS: ENOXAPARIN 40MG/0.4ML SYRINGE (J1650 PER 10MG) SC SCH (08:37)
[2022-07-26] MEDS: ARIPiprazole 2 MG TAB PO SCH (18:00)
[2022-07-26] MEDS: RAMELTEON 8 MG TAB (ROZEREM) PO SCH (20:40)
[2022-07-27] MEDS: ENOXAPARIN 40MG/0.4ML SYRINGE (J1650 PER 10MG) SC SCH (09:00)
[2022-07-27] MEDS: SENOKOT S TAB PO SCH ×2 (09:00→19:41)
[2022-07-27] MEDS: LOSARTAN 50MG TABLET PO SCH (09:00)
[2022-07-27] MEDS: ARIPiprazole 2 MG TAB PO SCH (17:32)
[2022-07-27] MEDS: RAMELTEON 8 MG TAB (ROZEREM) PO SCH (19:41)
[2022-07-28 06:00] VITALS: BP 114/56; TEMP 97.9; O2SAT 97
[2022-07-28] MEDS: ENOXAPARIN 40MG/0.4ML SYRINGE (J1650 PER 10MG) SC SCH (09:00)
[2022-07-28] MEDS: SENOKOT S TAB PO SCH ×2 (09:00→21:00)
[2022-07-28] MEDS: LOSARTAN 50MG TABLET PO SCH (09:00)
[2022-07-28] MEDS: QUEtiapine FUMARATE 12.5 MG HALF-TAB PO PRN (18:52)
[2022-07-28] MEDS: ARIPiprazole 2 MG TAB PO SCH (18:52)
[2022-07-28] MEDS: RAMELTEON 8 MG TAB (ROZEREM) PO SCH (21:00)
[2022-07-29 06:15] VITALS: BP 141/75; TEMP 98.1; O2SAT 96
[2022-07-29] MEDS: SENOKOT S TAB PO SCH ×2 (09:00→21:00)
[2022-07-29] MEDS: ENOXAPARIN 40MG/0.4ML SYRINGE (J1650 PER 10MG) SC SCH (09:00)
[2022-07-29] MEDS: LOSARTAN 50MG TABLET PO SCH (09:00)
[2022-07-29] MEDS: ARIPiprazole 2 MG TAB PO SCH (18:00)
[2022-07-29] MEDS: RAMELTEON 8 MG TAB (ROZEREM) PO SCH (21:00)
[2022-07-30 06:24] VITALS: TEMP 97.9; O2SAT 96
[2022-07-30 08:42] VITALS: BP 136/77
[2022-07-30] MEDS: SENOKOT S TAB PO SCH ×2 (08:43→21:29)
[2022-07-30] MEDS: LOSARTAN 50MG TABLET PO SCH (08:44)
[2022-07-30] MEDS: ENOXAPARIN 40MG/0.4ML SYRINGE (J1650 PER 10MG) SC SCH (08:50)
[2022-07-30] MEDS: QUEtiapine FUMARATE 12.5 MG HALF-TAB PO PRN (11:39)
[2022-07-30] MEDS: ARIPiprazole 2 MG TAB PO SCH ×2 (18:00→18:19)
[2022-07-30] MEDS: RAMELTEON 8 MG TAB (ROZEREM) PO SCH (21:29)
[2022-07-31] MEDS: LOSARTAN 50MG TABLET PO SCH (10:37)
[2022-07-31] MEDS: SENOKOT S TAB PO SCH ×2 (10:37→20:49)
[2022-07-31] MEDS: ENOXAPARIN 40MG/0.4ML SYRINGE (J1650 PER 10MG) SC SCH (10:37)
[2022-07-31] MEDS: ARIPiprazole 2 MG TAB PO SCH (18:04)
[2022-07-31] MEDS: QUEtiapine FUMARATE 12.5 MG HALF-TAB PO PRN (18:04)
[2022-07-31] MEDS: RAMELTEON 8 MG TAB (ROZEREM) PO SCH (20:49)
[2022-08-01] MEDS: LOSARTAN 50MG TABLET PO SCH (09:00)
[2022-08-01] MEDS: ENOXAPARIN 40MG/0.4ML SYRINGE (J1650 PER 10MG) SC SCH (09:00)
[2022-08-01] MEDS: SENOKOT S TAB PO SCH ×2 (09:00→20:37)
[2022-08-01] MEDS: QUEtiapine FUMARATE 12.5 MG HALF-TAB PO PRN (18:12)
[2022-08-01] MEDS: ARIPiprazole 2 MG TAB PO SCH (18:12)
[2022-08-01] MEDS: RAMELTEON 8 MG TAB (ROZEREM) PO SCH (20:37)
[2022-08-02] MEDS: SENOKOT S TAB PO SCH ×2 (07:47→20:31)
[2022-08-02 07:48] VITALS: BP 118/74
[2022-08-02] MEDS: ENOXAPARIN 40MG/0.4ML SYRINGE (J1650 PER 10MG) SC SCH ×2 (07:48→09:00)
[2022-08-02] MEDS: LOSARTAN 50MG TABLET PO SCH (07:52)
[2022-08-02] MEDS: ARIPiprazole 2 MG TAB PO SCH (18:00)
[2022-08-02] MEDS: RAMELTEON 8 MG TAB (ROZEREM) PO SCH (20:31)
[2022-08-03] MEDS: SENOKOT S TAB PO SCH ×2 (08:35→20:42)
[2022-08-03] MEDS: LOSARTAN 50MG TABLET PO SCH (08:35)
[2022-08-03] MEDS: ENOXAPARIN 40MG/0.4ML SYRINGE (J1650 PER 10MG) SC SCH (08:40)
[2022-08-03] MEDS: ACETAMINOPHEN TAB 650MG DOSE (2X325MG) PO PRN ×2 (19:34→20:53)
[2022-08-03] MEDS: ARIPiprazole 2 MG TAB PO SCH (19:35)
[2022-08-03] MEDS: RAMELTEON 8 MG TAB (ROZEREM) PO SCH (20:42)
[2022-08-04] MEDS: LOSARTAN 50MG TABLET PO SCH (08:10)
[2022-08-04] MEDS: SENOKOT S TAB PO SCH ×2 (08:11→20:58)
[2022-08-04] MEDS: ENOXAPARIN 40MG/0.4ML SYRINGE (J1650 PER 10MG) SC SCH (08:11)
[2022-08-04] MEDS: RAMELTEON 8 MG TAB (ROZEREM) PO SCH (20:38)
[2022-08-04] MEDS: ARIPiprazole 2 MG TAB PO SCH (20:38)
[2022-08-05] MEDS: SENOKOT S TAB PO SCH ×2 (09:00→20:49)
[2022-08-05] MEDS: ENOXAPARIN 40MG/0.4ML SYRINGE (J1650 PER 10MG) SC SCH (09:00)
[2022-08-05 15:18] VITALS: BP 138/68
[2022-08-05] MEDS: LOSARTAN 50MG TABLET PO SCH (15:18)
[2022-08-05] MEDS: ARIPiprazole 2 MG TAB PO SCH (18:49)
[2022-08-05] MEDS: RAMELTEON 8 MG TAB (ROZEREM) PO SCH (20:49)
[2022-08-06] MEDS: LOSARTAN 50MG TABLET PO SCH (09:00)
[2022-08-06] MEDS: ENOXAPARIN 40MG/0.4ML SYRINGE (J1650 PER 10MG) SC SCH (09:00)
[2022-08-06] MEDS: SENOKOT S TAB PO SCH ×2 (09:00→20:42)
[2022-08-06 11:34] VITALS: BP 103/63; TEMP 97.2; O2SAT 95
[2022-08-06] MEDS: ARIPiprazole 2 MG TAB PO SCH (18:00)
[2022-08-06] MEDS: RAMELTEON 8 MG TAB (ROZEREM) PO SCH (20:42)
[2022-08-07 08:09] VITALS: BP 114/64
[2022-08-07] MEDS: LOSARTAN 50MG TABLET PO SCH (08:10)
[2022-08-07] MEDS: ENOXAPARIN 40MG/0.4ML SYRINGE (J1650 PER 10MG) SC SCH (08:11)
[2022-08-07] MEDS: SENOKOT S TAB PO SCH ×2 (08:11→19:51)
[2022-08-07] MEDS: ARIPiprazole 2 MG TAB PO SCH (18:00)
[2022-08-07] MEDS: RAMELTEON 8 MG TAB (ROZEREM) PO SCH (19:50)
[2022-08-08] MEDS: LOSARTAN 50MG TABLET PO SCH (10:18)
[2022-08-08] MEDS: ENOXAPARIN 40MG/0.4ML SYRINGE (J1650 PER 10MG) SC SCH (10:20)
[2022-08-08] MEDS: SENOKOT S TAB PO SCH ×2 (10:20→19:27)
[2022-08-08] MEDS: ARIPiprazole 2 MG TAB PO SCH (17:36)
[2022-08-08] MEDS: RAMELTEON 8 MG TAB (ROZEREM) PO SCH (19:23)
[2022-08-08] MEDS: QUEtiapine FUMARATE 12.5 MG HALF-TAB PO PRN (19:23)
[2022-08-09] MEDS: SENOKOT S TAB PO SCH ×2 (07:52→21:00)
[2022-08-09] MEDS: LOSARTAN 50MG TABLET PO SCH (07:52)
[2022-08-09 07:54] VITALS: BP 115/62; TEMP 97.5; O2SAT 98
[2022-08-09] MEDS: ENOXAPARIN 40MG/0.4ML SYRINGE (J1650 PER 10MG) SC SCH (08:01)
[2022-08-09] MEDS: ARIPiprazole 2 MG TAB PO SCH (18:00)
[2022-08-09] MEDS: RAMELTEON 8 MG TAB (ROZEREM) PO SCH (21:00)
[2022-08-10 06:44] VITALS: BP 139/98; TEMP 97.2; O2SAT 98
[2022-08-10] MEDS: LOSARTAN 50MG TABLET PO SCH (09:00)
[2022-08-10] MEDS: SENOKOT S TAB PO SCH ×2 (09:00→21:16)
[2022-08-10] MEDS: ENOXAPARIN 40MG/0.4ML SYRINGE (J1650 PER 10MG) SC SCH (09:00)
[2022-08-10] MEDS: ARIPiprazole 2 MG TAB PO SCH (17:51)
[2022-08-10] MEDS: RAMELTEON 8 MG TAB (ROZEREM) PO SCH (21:16)
[2022-08-10] MEDS: QUEtiapine FUMARATE 12.5 MG HALF-TAB PO PRN (21:16)
[2022-08-11 06:00] VITALS: BP 106/52; TEMP 97.9
[2022-08-11] MEDS: LOSARTAN 50MG TABLET PO SCH (10:12)
[2022-08-11] MEDS: SENOKOT S TAB PO SCH ×2 (10:16→20:28)
[2022-08-11] MEDS: ENOXAPARIN 40MG/0.4ML SYRINGE (J1650 PER 10MG) SC SCH (10:16)
[2022-08-11] MEDS: ARIPiprazole 2 MG TAB PO SCH (18:24)
[2022-08-11] MEDS: QUEtiapine FUMARATE 12.5 MG HALF-TAB PO PRN (20:28)
[2022-08-11] MEDS: RAMELTEON 8 MG TAB (ROZEREM) PO SCH (20:28)
[2022-08-12 04:48] VITALS: BP 161/82; TEMP 97.9; O2SAT 97
[2022-08-12] MEDS: ENOXAPARIN 40MG/0.4ML SYRINGE (J1650 PER 10MG) SC SCH (09:00)
[2022-08-12] MEDS: SENOKOT S TAB PO SCH ×2 (11:07→21:00)
[2022-08-12] MEDS: DOCUSATE SODIUM 100MG CAPSULE PO PRN (11:07)
[2022-08-12] MEDS: LOSARTAN 50MG TABLET PO SCH (11:08)
[2022-08-12] MEDS: ARIPiprazole 2 MG TAB PO SCH (18:19)
[2022-08-12] MEDS: RAMELTEON 8 MG TAB (ROZEREM) PO SCH (19:44)
[2022-08-12] MEDS: QUEtiapine FUMARATE 12.5 MG HALF-TAB PO PRN (19:44)
[2022-08-13 06:38] VITALS: BP 131/84; TEMP 97.7; O2SAT 98
[2022-08-13] MEDS: ENOXAPARIN 40MG/0.4ML SYRINGE (J1650 PER 10MG) SC SCH (09:00)
[2022-08-13] MEDS: SENOKOT S TAB PO SCH ×2 (09:00→20:10)
[2022-08-13] MEDS: LOSARTAN 50MG TABLET PO SCH (09:00)
[2022-08-13 09:15] VITALS: BP 118/65
[2022-08-13] MEDS: NYSTATIN 100,000 UNITS/GM TOPICAL PWD 15GM TOP SCH ×2 (09:16→20:11)
[2022-08-13] MEDS: ARIPiprazole 2 MG TAB PO SCH (17:15)
[2022-08-13] MEDS: QUEtiapine FUMARATE 12.5 MG HALF-TAB PO PRN (20:10)
[2022-08-13] MEDS: RAMELTEON 8 MG TAB (ROZEREM) PO SCH (20:10)
[2022-08-13 20:15] VITALS: BP 152/77
[2022-08-14 06:00] VITALS: BP 131/68; TEMP 97.9; O2SAT 95
[2022-08-14] MEDS: ENOXAPARIN 40MG/0.4ML SYRINGE (J1650 PER 10MG) SC SCH (08:34)
[2022-08-14] MEDS: SENOKOT S TAB PO SCH ×2 (08:34→20:17)
[2022-08-14] MEDS: NYSTATIN 100,000 UNITS/GM TOPICAL PWD 15GM TOP SCH ×2 (08:35→20:19)
[2022-08-14] MEDS: LOSARTAN 50MG TABLET PO SCH (08:36)
[2022-08-14] MEDS: ARIPiprazole 2 MG TAB PO SCH (17:28)
[2022-08-14] MEDS: RAMELTEON 8 MG TAB (ROZEREM) PO SCH (20:17)
[2022-08-14] MEDS: QUEtiapine FUMARATE 12.5 MG HALF-TAB PO PRN (20:18)
[2022-08-15] MEDS: SENOKOT S TAB PO SCH ×2 (09:50→20:48)
[2022-08-15] MEDS: ACETAMINOPHEN TAB 650MG DOSE (2X325MG) PO PRN (09:51)
[2022-08-15] MEDS: NYSTATIN 100,000 UNITS/GM TOPICAL PWD 15GM TOP SCH ×2 (09:51→20:49)
[2022-08-15] MEDS: LOSARTAN 50MG TABLET PO SCH (09:52)
[2022-08-15] MEDS: ENOXAPARIN 40MG/0.4ML SYRINGE (J1650 PER 10MG) SC SCH (10:11)
[2022-08-15] MEDS: ARIPiprazole 2 MG TAB PO SCH (20:43)
[2022-08-15] MEDS: QUEtiapine FUMARATE 12.5 MG HALF-TAB PO PRN (20:44)
[2022-08-15] MEDS: RAMELTEON 8 MG TAB (ROZEREM) PO SCH (20:48)
[2022-08-16] MEDS: LOSARTAN 50MG TABLET PO SCH (11:05)
[2022-08-16] MEDS: SENOKOT S TAB PO SCH ×2 (11:05→20:05)
[2022-08-16] MEDS: ENOXAPARIN 40MG/0.4ML SYRINGE (J1650 PER 10MG) SC SCH (11:06)
[2022-08-16] MEDS: NYSTATIN 100,000 UNITS/GM TOPICAL PWD 15GM TOP SCH ×2 (11:06→20:05)
[2022-08-16] MEDS: RAMELTEON 8 MG TAB (ROZEREM) PO SCH (19:48)
[2022-08-16] MEDS: ARIPiprazole 2 MG TAB PO SCH (19:48)
[2022-08-16 21:12] VITALS: BP 210/90
[2022-08-17 10:38] VITALS: BP 115/67
[2022-08-17] MEDS: LOSARTAN 50MG TABLET PO SCH (10:44)
[2022-08-17] MEDS: SENOKOT S TAB PO SCH ×2 (10:46→20:48)
[2022-08-17] MEDS: ENOXAPARIN 40MG/0.4ML SYRINGE (J1650 PER 10MG) SC SCH (10:46)
[2022-08-17] MEDS: NYSTATIN 100,000 UNITS/GM TOPICAL PWD 15GM TOP SCH ×2 (14:18→20:49)
[2022-08-17] MEDS: ARIPiprazole 2 MG TAB PO SCH (18:32)
[2022-08-17] MEDS: QUEtiapine FUMARATE 12.5 MG HALF-TAB PO PRN (20:48)
[2022-08-17] MEDS: RAMELTEON 8 MG TAB (ROZEREM) PO SCH (20:48)
[2022-08-18] MEDS: ENOXAPARIN 40MG/0.4ML SYRINGE (J1650 PER 10MG) SC SCH (09:19)
[2022-08-18] MEDS: LOSARTAN 50MG TABLET PO SCH (09:21)
[2022-08-18] MEDS: SENOKOT S TAB PO SCH ×2 (09:21→20:02)
[2022-08-18] MEDS: NYSTATIN 100,000 UNITS/GM TOPICAL PWD 15GM TOP SCH ×2 (09:21→21:19)
[2022-08-18] MEDS: RAMELTEON 8 MG TAB (ROZEREM) PO SCH (20:02)
[2022-08-18] MEDS: ARIPiprazole 2 MG TAB PO SCH (20:02)
[2022-08-18] MEDS: QUEtiapine FUMARATE 12.5 MG HALF-TAB PO PRN (20:02)
[2022-08-19] MEDS: ENOXAPARIN 40MG/0.4ML SYRINGE (J1650 PER 10MG) SC SCH (09:00)
[2022-08-19] MEDS: SENOKOT S TAB PO SCH ×2 (09:47→20:07)
[2022-08-19] MEDS: LOSARTAN 50MG TABLET PO SCH (09:47)
[2022-08-19] MEDS: ACETAMINOPHEN TAB 650MG DOSE (2X325MG) PO PRN (09:47)
[2022-08-19] MEDS: NYSTATIN 100,000 UNITS/GM TOPICAL PWD 15GM TOP SCH ×2 (09:48→20:33)
[2022-08-19] MEDS: ARIPiprazole 2 MG TAB PO SCH (18:58)
[2022-08-19] MEDS: QUEtiapine FUMARATE 12.5 MG HALF-TAB PO PRN (20:02)
[2022-08-19] MEDS: RAMELTEON 8 MG TAB (ROZEREM) PO SCH (20:02)
[2022-08-20] MEDS: ENOXAPARIN 40MG/0.4ML SYRINGE (J1650 PER 10MG) SC SCH (09:00)
[2022-08-20] MEDS: LOSARTAN 50MG TABLET PO SCH (09:40)
[2022-08-20] MEDS: SENOKOT S TAB PO SCH ×2 (09:40→21:17)
[2022-08-20] MEDS: NYSTATIN 100,000 UNITS/GM TOPICAL PWD 15GM TOP SCH ×2 (09:44→21:19)
[2022-08-20] MEDS: RAMELTEON 8 MG TAB (ROZEREM) PO SCH (21:17)
[2022-08-20] MEDS: QUEtiapine FUMARATE 12.5 MG HALF-TAB PO PRN (21:17)
[2022-08-20] MEDS: ARIPiprazole 2 MG TAB PO SCH (21:18)
[2022-08-21 08:00] VITALS: BP 109/60
[2022-08-21] MEDS: LOSARTAN 50MG TABLET PO SCH (08:37)
[2022-08-21] MEDS: SENOKOT S TAB PO SCH ×2 (08:38→21:00)
[2022-08-21] MEDS: ENOXAPARIN 40MG/0.4ML SYRINGE (J1650 PER 10MG) SC SCH (08:38)
[2022-08-21] MEDS: NYSTATIN 100,000 UNITS/GM TOPICAL PWD 15GM TOP SCH ×2 (10:37→22:22)
[2022-08-21] MEDS: ARIPiprazole 2 MG TAB PO SCH (18:00)
[2022-08-21] MEDS: QUEtiapine FUMARATE 12.5 MG HALF-TAB PO PRN (22:22)
[2022-08-21] MEDS: RAMELTEON 8 MG TAB (ROZEREM) PO SCH (22:22)
[2022-08-22 06:00] VITALS: BP 118/61; TEMP 97.7; O2SAT 96
[2022-08-22] MEDS: LOSARTAN 50MG TABLET PO SCH (07:47)
[2022-08-22] MEDS: ENOXAPARIN 40MG/0.4ML SYRINGE (J1650 PER 10MG) SC SCH (07:48)
[2022-08-22] MEDS: SENOKOT S TAB PO SCH ×2 (07:48→20:54)
[2022-08-22] MEDS: NYSTATIN 100,000 UNITS/GM TOPICAL PWD 15GM TOP SCH ×2 (08:21→20:55)
[2022-08-22] MEDS: ARIPiprazole 2 MG TAB PO SCH (17:49)
[2022-08-22] MEDS: RAMELTEON 8 MG TAB (ROZEREM) PO SCH (20:52)
[2022-08-22] MEDS: QUEtiapine FUMARATE 12.5 MG HALF-TAB PO PRN (20:52)
[2022-08-23] MEDS: LOSARTAN 50MG TABLET PO SCH (07:23)
[2022-08-23] MEDS: SENOKOT S TAB PO SCH ×2 (07:23→21:00)
[2022-08-23] MEDS: ENOXAPARIN 40MG/0.4ML SYRINGE (J1650 PER 10MG) SC SCH (07:24)
[2022-08-23] MEDS: ARIPiprazole 2 MG TAB PO SCH (17:56)
[2022-08-23] MEDS: RAMELTEON 8 MG TAB (ROZEREM) PO SCH (21:00)
[2022-08-24 06:00] VITALS: BP 150/88; TEMP 97.7; O2SAT 99
[2022-08-24] MEDS: ENOXAPARIN 40MG/0.4ML SYRINGE (J1650 PER 10MG) SC SCH (09:00)
[2022-08-24] MEDS: SENOKOT S TAB PO SCH ×2 (09:00→20:23)
[2022-08-24] MEDS: LOSARTAN 50MG TABLET PO SCH (09:19)
[2022-08-24] MEDS: ARIPiprazole 2 MG TAB PO SCH (18:00)
[2022-08-24] MEDS: RAMELTEON 8 MG TAB (ROZEREM) PO SCH (20:23)
[2022-08-25 05:30] VITALS: BP 187/95; TEMP 98.2; O2SAT 98
[2022-08-25 05:50] VITALS: BP 111/57
[2022-08-25] MEDS: SENOKOT S TAB PO SCH ×2 (07:45→20:11)
[2022-08-25] MEDS: ENOXAPARIN 40MG/0.4ML SYRINGE (J1650 PER 10MG) SC SCH (07:45)
[2022-08-25] MEDS: LOSARTAN 50MG TABLET PO SCH (08:09)
[2022-08-25] MEDS: ARIPiprazole 2 MG TAB PO SCH (17:57)
[2022-08-25] MEDS: RAMELTEON 8 MG TAB (ROZEREM) PO SCH (20:09)
[2022-08-25] MEDS: QUEtiapine FUMARATE 12.5 MG HALF-TAB PO PRN (20:09)
[2022-08-26] MEDS: LOSARTAN 50MG TABLET PO SCH (08:53)
[2022-08-26] MEDS: SENOKOT S TAB PO SCH ×2 (08:54→21:00)
[2022-08-26] MEDS: ENOXAPARIN 40MG/0.4ML SYRINGE (J1650 PER 10MG) SC SCH (08:54)
[2022-08-26] MEDS: ARIPiprazole 2 MG TAB PO SCH (20:31)
[2022-08-26] MEDS: RAMELTEON 8 MG TAB (ROZEREM) PO SCH (20:31)
[2022-08-26] MEDS: QUEtiapine FUMARATE 12.5 MG HALF-TAB PO PRN (20:31)
[2022-08-27 06:00] VITALS: BP 139/80; TEMP 97.9; O2SAT 96
[2022-08-27] MEDS: ENOXAPARIN 40MG/0.4ML SYRINGE (J1650 PER 10MG) SC SCH (09:00)
[2022-08-27] MEDS: SENOKOT S TAB PO SCH ×2 (09:00→21:00)
[2022-08-27] MEDS: LOSARTAN 50MG TABLET PO SCH (09:00)
[2022-08-27] MEDS: ARIPiprazole 2 MG TAB PO SCH (17:37)
[2022-08-27] MEDS: RAMELTEON 8 MG TAB (ROZEREM) PO SCH (20:07)
[2022-08-27] MEDS: QUEtiapine FUMARATE 12.5 MG HALF-TAB PO PRN (20:07)
[2022-08-28 05:58] VITALS: BP 139/79; TEMP 98.4; O2SAT 97
[2022-08-28] MEDS: LOSARTAN 50MG TABLET PO SCH (10:47)
[2022-08-28] MEDS: ENOXAPARIN 40MG/0.4ML SYRINGE (J1650 PER 10MG) SC SCH (11:07)
[2022-08-28] MEDS: SENOKOT S TAB PO SCH ×2 (11:07→21:17)
[2022-08-28] MEDS: ARIPiprazole 2 MG TAB PO SCH (21:17)
[2022-08-28] MEDS: RAMELTEON 8 MG TAB (ROZEREM) PO SCH (21:17)
[2022-08-29] MEDS: LOSARTAN 50MG TABLET PO SCH (08:50)
[2022-08-29] MEDS: ENOXAPARIN 40MG/0.4ML SYRINGE (J1650 PER 10MG) SC SCH (08:51)
[2022-08-29] MEDS: SENOKOT S TAB PO SCH ×2 (08:51→21:02)
[2022-08-29] MEDS: RAMELTEON 8 MG TAB (ROZEREM) PO SCH (21:02)
[2022-08-29] MEDS: ARIPiprazole 2 MG TAB PO SCH (21:02)
[2022-08-30 06:00] VITALS: TEMP 98.1
[2022-08-30] MEDS: SENOKOT S TAB PO SCH ×2 (10:35→20:53)
[2022-08-30] MEDS: LOSARTAN 50MG TABLET PO SCH (10:35)
[2022-08-30] MEDS: ENOXAPARIN 40MG/0.4ML SYRINGE (J1650 PER 10MG) SC SCH (10:36)
[2022-08-30] MEDS: RAMELTEON 8 MG TAB (ROZEREM) PO SCH (20:53)
[2022-08-30] MEDS: QUEtiapine FUMARATE 12.5 MG HALF-TAB PO PRN (20:53)
[2022-08-30] MEDS: ARIPiprazole 2 MG TAB PO SCH (20:53)
[2022-08-31 06:44] VITALS: BP 123/63; TEMP 97.9; O2SAT 96
[2022-08-31] MEDS: SENOKOT S TAB PO SCH ×2 (08:45→21:16)
[2022-08-31] MEDS: LOSARTAN 50MG TABLET PO SCH (08:46)
[2022-08-31] MEDS: ENOXAPARIN 40MG/0.4ML SYRINGE (J1650 PER 10MG) SC SCH ×2 (08:46→08:49)
[2022-08-31] MEDS ORDERED: ARTIDRO2 OU (18:11)
[2022-08-31] MEDS ORDERED: HYDR-3490 PO (18:11)
[2022-08-31] MEDS ORDERED: COLA100C5 PO (18:11)
[2022-08-31] MEDS ORDERED: RAME8TAB2 PO (18:11)
[2022-08-31] MEDS ORDERED: ACET1TAB55 PO (18:11)
[2022-08-31] MEDS ORDERED: ABIL1TAB13 PO (18:11)
[2022-08-31] MEDS ORDERED: LOSA-528 PO (18:11)
[2022-08-31] MEDS ORDERED: QUET1TAB17 PO (18:11)
[2022-08-31] MEDS ORDERED: SENN-52 PO (18:11)
[2022-08-31] MEDS: ARIPiprazole 2 MG TAB PO SCH (21:16)
[2022-08-31] MEDS: RAMELTEON 8 MG TAB (ROZEREM) PO SCH (21:16)
[2022-08-31] MEDS: QUEtiapine FUMARATE 12.5 MG HALF-TAB PO PRN (21:19)
[2022-09-01] MEDS ORDERED: LORazepam 1 MG TAB PO PRN (06:00)
[2022-09-01 06:44] VITALS: BP 132/75; TEMP 98.1; O2SAT 96
[2022-09-01] MEDS: ENOXAPARIN 40MG/0.4ML SYRINGE (J1650 PER 10MG) SC SCH (08:19)
[2022-09-01 08:24] VITALS: BP 132/75
[2022-09-01] MEDS: LOSARTAN 50MG TABLET PO SCH (08:24)
[2022-09-01] MEDS: SENOKOT S TAB PO SCH (08:24)
== END 2022-09-01 11:49 | DRG 884 ==
LOC: M ED 16:12 → M ED INP 20:38 → M MSPAV 22:10
PROVIDERS: ADMIT Internal Medicine; ATTEND Internal Medicine
DX: F03.911 Unspecified dementia, unspecified severity, with agitation (principal); I16.9 Hypertensive crisis, unspecified; I67.82 Cerebral ischemia; I10 Essential (primary) hypertension; E78.5 Hyperlipidemia, unspecified; F41.9 Anxiety disorder, unspecified; F32.A Depression, unspecified; M35.3 Polymyalgia rheumatica; E86.0 Dehydration; M79.89 Other specified soft tissue disorders; I95.9 Hypotension, unspecified; E86.1 Hypovolemia; Z66 Do not resuscitate; Z88.6 Allergy status to analgesic agent

== ENCOUNTER → 2025-01-09 | Outpatient (REF) | payer MEDICARE, MEDICAID ==
[~2025-01-09] MED LIST: ABIL1TAB13 PO; ACET1TAB55 PO; ARTIDRO2 OU; COLA100C5 PO; HYDR-3490 PO; LOSA-528 PO; QUET1TAB17 PO; RAME8TAB2 PO; SENN-52 PO
== END ==
LOC: SKLAB6 10:02
PROVIDERS: ATTEND Family Medicine
DX: M19.011 Primary osteoarthritis, right shoulder (principal); Z86.15 Personal history of latent tuberculosis infection

== ENCOUNTER → 2025-02-25 | Outpatient (REF) | payer MEDICARE, MEDICAID | LOC: SKLAB6 10:41 | PROVIDERS: ATTEND Family Medicine | DX: Z11.2 Encounter for screening for other bacterial diseases (principal); Z20.818 Contact with and (suspected) exposure to other bacterial communicable diseases ==